=== PATIENT | female | born 1990 | race Caucasian/White ===

== ENCOUNTER 2017-11-06 02:36 | Emergency (ER) | payer SELFPAY ==
[~2017-11-06] VITALS: Ht 160 cm; Wt 102.2 kg
[2017-11-06 03:38] VITALS: BP 131/90
== END 2017-11-06 03:38 | disposition home or self-care (01) ==
LOC: EME 02:36
PROC: 09C37ZZ Extirpation of Matter from Right External Auditory Canal, Via Natural or Artificial Opening (ICD-10-PCS; principal; 2017-11-06)
DX: T16.1XXA Foreign body in right ear, initial encounter (principal); X58.XXXA Exposure to other specified factors, initial encounter